=== PATIENT | male | born 1980 | race Caucasian/White ===

== ENCOUNTER 2023-05-20 18:24 | Emergency (ER) | payer MEDICAID ==
[~2023-05-20] VITALS: Ht 167.6 cm; Wt 109.0 kg
[2023-05-20 18:37] VITALS: BP 156/94; PULSE 95; RESP 16; TEMP 99.7; O2SAT 99
[2023-05-20] MEDS ORDERED: BO1 TP (21:31)
== END 2023-05-20 22:08 | disposition home or self-care (01) ==
LOC: ER 18:24
DX: R68.89 Other general symptoms and signs (principal); M54.50 Low back pain, unspecified
CPT/HCPCS: 99283